=== PATIENT | male | born 1995 | race Caucasian/White ===

== ENCOUNTER 2017-09-06 23:32 | Emergency (ER) | payer SELFPAY ==
[~2017-09-06] VITALS: Ht 182.8 cm; Wt 104.3 kg
[~2017-09-06 23:32] MED LIST: ATARAX,VISTARIL50 MG PO; AZULFIDINE500 MG PO; CARBIDOPA/LEVOD1 TA1 PO; NATURE'S BLEND F1 MG PO; TYLENOL W/CODEI1 TA5 PO; ULTRAM50 MG PO; ZOFRAN4 MG PO; ZOLOFT25 MG PO
[2017-09-06 23:33] VITALS: BP 119/60
[2017-09-06] MEDS ORDERED: NORCO 5-325 TA1 EACH PO (23:58)
== END 2017-09-07 00:36 | disposition home or self-care (01) ==
LOC: ED 23:32
DX: S83.91XA Sprain of unspecified site of right knee, initial encounter (principal); M23.91 Unspecified internal derangement of right knee; Z88.6 Allergy status to analgesic agent; X58.XXXA Exposure to other specified factors, initial encounter; Y93.89 Activity, other specified; Y92.89 Other specified places as the place of occurrence of the external cause; Y99.8 Other external cause status

== ENCOUNTER 2018-09-05 18:40 | Emergency (ER) | payer SELFPAY ==
[~2018-09-05] VITALS: Wt 90.7 kg
[~2018-09-05 18:40] MED LIST changes: +NORCO 5-325 TA1 EACH PO; +PREDNISONE20 M1 PO
[2018-09-05 18:42] VITALS: BP 130/90
[2018-09-05] MEDS ORDERED: CEPHALEXIN500 M1 PO (19:02)
== END 2018-09-05 21:21 | disposition home or self-care (01) ==
LOC: ED 18:40
DX: S61.211A Laceration without foreign body of left index finger without damage to nail, initial encounter (principal); F17.200 Nicotine dependence, unspecified, uncomplicated; Z88.8 Allergy status to other drugs, medicaments and biological substances; Z79.899 Other long term (current) drug therapy; W26.8XXA Contact with other sharp object(s), not elsewhere classified, initial encounter; Y93.G9 Activity, other involving cooking and grilling; Y92.89 Other specified places as the place of occurrence of the external cause; Y99.8 Other external cause status

== ENCOUNTER 2019-07-14 06:08 | Emergency (ER) | payer SELFPAY ==
[~2019-07-14] VITALS: Ht 182.8 cm; Wt 90.7 kg
[~2019-07-14 06:08] MED LIST changes: +CEPHALEXIN500 M1 PO
[2019-07-14 06:10] VITALS: BP 134/88
== END 2019-07-14 06:42 | disposition left against medical advice (07) ==
LOC: ED 06:08
DX: T50.901A Poisoning by unspecified drugs, medicaments and biological substances, accidental (unintentional), initial encounter (principal); R40.20 Unspecified coma; F17.200 Nicotine dependence, unspecified, uncomplicated; Z88.8 Allergy status to other drugs, medicaments and biological substances; Z79.2 Long term (current) use of antibiotics; Z79.899 Other long term (current) drug therapy; Z53.29 Procedure and treatment not carried out because of patient's decision for other reasons; Y92.89 Other specified places as the place of occurrence of the external cause

== ENCOUNTER 2024-04-23 22:41 | Emergency (ER) | payer OTHER ==
[~2024-04-23] VITALS: Ht 188 cm; Wt 113.4 kg
[2024-04-23 22:46] VITALS: BP 160/97
[2024-04-23 23:42] LABS: BASO % 0.6 % (0.0-1.0); EOS # 0.3 10*3/uL (0.0-0.4); EOS % 5.1 % (1.0-4.0); HEMATOCRIT 39.4 % (42.0-52.0); MEAN CELL VOLUME 91.4 fl (80.0-94.0); MEAN CORPUSCULAR HGB 29.5 pg (27.0-31.0); MEAN CORPUSCULAR HGB CONC 32.2 g/dl (33.0-37.0); MEAN PLATELET VOLUME 10.5 fl (9.6-12.3); MONO # 0.6 10*3/uL (0.1-1.0); NEUT # 3.2 10*3/uL (2.3-7.9); NEUT % 50.2 % (47.0-73.0); PLATELET COUNT AUTOMATED 251 10*3/uL (130-400); RED BLOOD COUNT 4.31 10*6/uL (4.50-5.90); RED CELL DISTRI WIDTH 12.7 % (0-14.5); WHITE BLOOD COUNT 6.3 10*3/uL (4.8-10.8)
[2024-04-24] LABS: BUN 17 mg/dl (9-23); CHLORIDE 106 mmol/L (98-107)
[2024-04-24] MEDS ORDERED: ANUSOL-HC25 MG R (00:10)
== END 2024-04-24 00:32 | disposition home or self-care (01) ==
LOC: ED 22:41
PROVIDERS: Internal Medicine
DX: K64.9 Unspecified hemorrhoids (principal); F14.10 Cocaine abuse, uncomplicated; F12.10 Cannabis abuse, uncomplicated; F17.200 Nicotine dependence, unspecified, uncomplicated; F13.10 Sedative, hypnotic or anxiolytic abuse, uncomplicated; F11.90 Opioid use, unspecified, uncomplicated; Z88.6 Allergy status to analgesic agent; Z98.890 Other specified postprocedural states